=== PATIENT | male | born 1940 | race Caucasian/White ===

== ENCOUNTER 2023-02-07 06:34 | Day surgery (SDC) | payer OTHER ==
[2023-02-05 16:02] LABS: Absolute Lymphocytes (CBC) 3.1 K/uL (0.7-4.9); Lymphocytes % 37.4 % (15.3-44.8); MCV 99.2 fL (80-100); MPV 7.6 fL (7.6-11.3); RBC Red Blood Cell Count 4.53 M/uL (4.33-5.43)
[2023-02-05 16:16] LABS: Potassium 3.8 mmol/L (3.5-5.1)
--- NOTE | 2023-02-05 17:30 | RAD REPORT ---
EXAM DESCRIPTION: [facility]2 Views)02/05/2023 3:34 pm CLINICAL HISTORY: Pre op pending pilonidal cyst removal COMPARISON: Chest Pa And Lat (2 Views) dated 03/30/2021; Chest Pa And Lat (2 Views) dated 04/02/2018; CH EST PA AND LAT 2 VIEW dated 07/22/2014; CHEST SINGLE VIEW dated 01/10/2014 TECHNIQUE: PA and lateral views of the chest. FINDINGS: The lungs are clear.Stable peripheral reticular opacities and interstitial coarsening, par ticularly at the left more than right base, likely related to fibrosis or scarring. Partially visuali zed lower cervical fusion hardware. Tortuous thoracic aorta. No pneumothorax or effusion. The cardiom ediastinal contours otherwise are unremarkable. IMPRESSION: No acute cardiopulmonary process. Stable chronic findings as above.
--- NOTE | 2023-02-06 12:41 | EKG ---
Test Date: 2023-02-05 Test Time: 15:17:02 Hose Wrapper: ZARA MEASUREMENT RESULTS: Intervals: Rate: 86 OK: 192 QRSD: 88 QT: 396 QTc: 473 [place]: P: 64 OK: 192 QRS: -47 T: 78 INTERPRETIVE STATEMENTS: Normal sinus rhythm Left anterior fascicular block Nonspecific ST and T wave abnormality Prolonged QT Abnormal ECG Compared to ECG 01/11/2014 07:30:36 Left anterior fascicular block now present ST (T wave) deviation now present Prolonged QT interval now present Sinus bradycardia no longer present Left-axis deviation no longer present Left ventricular hypertrophy no longer present T-wave abnormality no longer present Possible ischemia no longer present Electronically Signed On 02-06-23 12:39:05 CDT by Thaddeus Hatfield
[2023-02-07] MEDS ORDERED: Ringers Lactate 1,000 ML IV ONE (06:53)
[2023-02-07] MEDS ORDERED: METHYLENE BLUE 0.5% 10 ML AMP ONE (07:31)
[2023-02-07] MEDS ORDERED: CIPROFLOXACIN 400mg IV 400 MG/200 ML BAG IV ONE (07:33)
[2023-02-07] MEDS ORDERED: propofoL 200 MG/20 ML VIAL IV ONE (07:41)
[2023-02-07] MEDS ORDERED: FENTANYL CITR 100 MCG/2 ML ONE (07:42)
[2023-02-07] MEDS ORDERED: ROCURONIUM 50 MG/5 ML VIAL IV ONE (07:43)
[2023-02-07] MEDS ORDERED: ONDANSETRON 4 MG/2 ML VIAL ONE (07:44)
[2023-02-07] MEDS ORDERED: LIDOCAINE 2% MPF 5 ML VIAL ONE (07:44)
[2023-02-07] MEDS ORDERED: NEOSTIGMINE 1 MG/ML -10 ML VIAL ONE (08:28)
[2023-02-07] MEDS ORDERED: GLYCOPYRROLATE 0.2 MG/ML SYR ONE (08:28)
[2023-02-07] MEDS ORDERED: KETOROLAC 30 MG/ML INJ ONE (08:33)
[2023-02-07] MEDS ORDERED: ALBUTEROL 2.5 MG/3 ML NEB SOL ONE (08:42)
[2023-02-07] MEDS ORDERED: SUGAMMADEX SODIUM 200 MG/2 ML VIAL IV ONE (08:46)
[2023-02-07] MEDS ORDERED: EPINEPHRINE INH 0.5 ML VIAL IH ONE (08:46)
--- NOTE | 2023-02-07 08:46 | P.BOP ---
Preoperative diagnosis: infected pilonidal cyst Postoperative diagnosis: same Primary procedure: Wide excision of infected pilonidal cyst 4x4cm Estimated blood loss: <10cc Specimen: cyst Findings: as above Anesthesia: General Complications: None Drain(s): Other (wet to dry NS) Transferred to: Recovery Room Condition: Good
[2023-02-07 09:48] VITALS: O2SAT 93
[2023-02-07 11:15] VITALS: BP 145/76; TEMP 97
--- NOTE | 2023-02-07 12:28 | OP ---
Date of Procedure: 02/07/2023 Surgeon: Krishna Lynne MD Preoperative Diagnosis: Infected pilonidal cyst. Postoperative Diagnosis: Infected pilonidal cyst. Procedure: Wide excision of infected pilonidal cyst 4 x 4 cm. Estimated Blood Loss: Less than 10 cc. Specimen: Cyst. Anesthesia: General plus local. Packing: Wet-to-dry normal saline. Indications: This is the case of an 82-year-old patient who comes to us with an infected pilonidal c yst. The benefits, alternatives, and risks of wide excision were fully explained which include, but not limited to, infection, bleeding, damage to adjacent structures, anesthesia complication, NV, and even . He also understands this may not relieve any symptoms. He might need more than one surg ical intervention. He understood, signed a consent. He understands also he will be packing that are a. There was an ulceration on the center of that skin, we cannot rule out malignancy, so he was advi sed to be aware of his following up on his pathology report that we are going to send out. The area of concern was previously marked by me and the patient. Description Of Procedure: Patient was brought to the operating room, placed in supine position, anes thesia was done without complication. The patient was placed in prone position with proper protectio n. The area of concern was identified. The area was prepped and draped in a sterile fashion. Methy shannon blue was placed through that area with the catheter. Then, after that, we proceeded to delineat e the area and do a wide resection all the way down into near the tailbone. Mass was excised. The a katie was irrigated. The hemostasis was obtained. Due to that ulceration and infection, I believe, he will benefit better from just letting that closed by secondary intention. So, then after injecting local anesthetic and obtaining hemostasis, we packed the area with wet-to-dry dressing. Patient cindie rated the procedure well. Patient was sent to recovery in stable condition. HM/MODL Voice ID: [id number] Report ID: [id number]
--- NOTE | 2023-02-07 12:34 | DS ---
Date of Discharge: 02/07/2023 Diagnosis: Infected pilonidal cyst. Procedure: Wide excision of infected pilonidal cyst, 4 x 4 cm. Disposition: Home. Plan: Wet-to-dry dressing daily. Follow up in my office in 1 week. Call for appointment at [phone]. ISSA/MARISELA Voice ID: [id number] Report ID: [id number]
== END 2023-02-07 11:08 | disposition home or self-care (01) ==
LOC: OR 06:34
PROVIDERS: ATTEND Surgery
PROC: 0JB90ZZ Excision of Buttock Subcutaneous Tissue and Fascia, Open Approach (ICD-10-PCS; principal; 2023-02-07 08:00)
DX: L05.91 Pilonidal cyst without abscess (principal)
CPT/HCPCS: 93005; 85025; 80048; 36415; 88304; 71046; 11770; J2704; J2710; J7613; J2001; J3010; J2405; J0744; J7120

== ENCOUNTER 2023-05-19 11:37 | Emergency (ER) | payer OTHER ==
--- OUTSIDE RECORDS SUMMARY | 2023-05-19 11:43 | XMS REPORT | Continuity of Care Document ---
:[address] [facility] Address [address] [place] [address] [address] [place] [address] Care Team Providers Name Role Phone Pcp, Patient Does Not Have A Primary Care Physician [id number] Sreedhar Sandoval Attending Clinician Unavailable Nurse, Adc Pob Immunization Attending Clinician Unavailable Daren Bravo DO Attending Clinician Payers Payer Name Policy Type Policy Number Effective Date Expiration Date S ource Problems Condition Condition Condition Status Onset Resolution Last Treating Co mments Source Name Details Category Date Date Treatment Clinician Date [id number] Pain of Problem Comm on right hip [facility] joint - [facility] [id number] 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 [facility] [id number] Sciatica, Problem Comm on right side [facility] Allergies, Adverse Reactions, Alerts Allergy Allergy Status Severity Reaction(s) Onset Inactive Treating Comm ents Source Name Type Date Date Clinician codeine codeine Active Unknown Common [facility] 0 Drug Active Unknown Common allergy [facility] Social History Social Habit Start Date Stop Date Quantity Comments Source History of Tobacco Current Smoker Co mmon [facility] Use [facility] Sex Assigned At Com mon [facility] Smoking Status Start Date Stop Date Source Unknown if ever smoked [facility] Current Smoker 2022-08-16 00:00:00 Common Spiri t - [facility] Medications Ordered Filled Start Stop Current Ordering Indication Dosage Frequency Signature Comments Components Source Medication Medication Date Date Medication? Clinician (SIG) Name Name Bupivicaine Bupivicaine 2019- No 2.5mg Common Nutrioso Nutrioso 2-10 Spirit 00:00: - [facility] Kenalog Kenalog 2019- No 40mg Common (Triamcinol (Triamcinol 2-10 S pirit one) one) 00:00: - [facility] Bupivicaine Bupivicaine 2019- No 2.5mg Common Nutrioso Nutrioso 2-10 Spirit 00:00: - [facility] Kenalog Kenalog 2019- No 40mg Common (Triamcinol (Triamcinol 2-10 S pirit one) one) 00:00: - [facility] Bupivicaine Bupivicaine 2019-1 No 2.5mg Common Nutrioso Nutrioso 2-10 Spirit 00:00: - [facility] Kenalog Kenalog 2019- No 40mg Common (Triamcinol (Triamcinol 2-10 S pirit one) one) 00:00: - [facility] Bupivicaine Bupivicaine 2019-1 No 2.5mg Common Nutrioso Nutrioso 2-10 Spirit 00:00: - [facility] Kenalog Kenalog 2019- No 40mg Common (Triamcinol (Triamcinol 2-10 S pirit one) one) 00:00: - [facility] Ferrous Ferrous No Ferrous Gluconate - Gluconate - Gluconate - HYDROcodone HYDROcodone No HYDROcodon -Acetaminop -Acetaminop e-Acetamin hen hen ophen Lutein 6 MG Lutein 6 MG No 1{capsu QD Lutein 6 le_with MG _a_meal } Aspirin Aspirin No Aspirin Acidophilus Acidophilus No Acidophilu Probiotic - Probiotic - s Probiotic - Calcium + D Calcium + D No Calcium + 500-1000-40 500-1000-40 D MG-UNT-MCG MG-UNT-MCG 500-1000-4 0 MG-UNT-MCG Tylenol Tylenol No Tylenol Arthritis Arthritis Arthritis Pain Pain Pain predniSONE predniSONE No predniSONE Jackson Oil Jackson Oil No Jackson Oil - - - Vitamin D Vitamin D No 1{table QD Vitamin D 25 MCG 25 MCG t} 25 MCG (1000 UT) (1000 UT) (1000 UT) Metoprolol Metoprolol No Metoprolol Tartrate Tartrate Tartrate Atorvastati Atorvastati No Atorvastat n Calcium n Calcium in Calcium Antioxidant Antioxidant No Antioxidan - - t - Ferrous Ferrous No Ferrous Gluconate - Gluconate - Gluconate - HYDROcodone HYDROcodone No HYDROcodon -Acetaminop -Acetaminop e-Acetamin hen hen ophen Lutein 6 MG Lutein 6 MG No 1{capsu QD Lutein 6 le_with MG _a_meal } Aspirin Aspirin No Aspirin Acidophilus Acidophilus No Acidophilu Probiotic - Probiotic - s Probiotic - Calcium + D Calcium + D No Calcium + 500-1000-40 500-1000-40 D MG-UNT-MCG MG-UNT-MCG 500-1000-4 0 MG-UNT-MCG Tylenol Tylenol No Tylenol Arthritis Arthritis Arthritis Pain Pain Pain predniSONE predniSONE No predniSONE Jackson Oil Jackson Oil No Jackson Oil - - - Vitamin D Vitamin D No 1{table QD Vitamin D 25 MCG 25 MCG t} 25 MCG (1000 UT) (1000 UT) (1000 UT) Metoprolol Metoprolol No Metoprolol Tartrate Tartrate Tartrate Atorvastati Atorvastati No Atorvastat n Calcium n Calcium in Calcium Antioxidant Antioxidant No Antioxidan - - t - Ferrous Ferrous No Ferrous Gluconate - Gluconate - Gluconate - Atorvastati Atorvastati Yes Gareth not Common n Calcium n Calcium Brar defined Sp kala [facility] PredniSONE PredniSONE Yes Gareth not Common Brar defined [facility] Metoprolol Metoprolol Yes Gareth not Common Tartrate Tartrate Brar defined Spir it [facility] Hydrocodone Hydrocodone Yes Gareth not Common -Acetaminop -Acetaminop Brar defined Spirit hen hen [facility] Aspirin Aspirin Yes Gareth not Common Brar defined [facility] Antioxidant Antioxidant Yes Gareth as Common Brar directed [facility] Calcium + D Calcium + D Yes Gareth as Common Brar directed [facility] Ferrous Ferrous Yes Gareth as Common Gluconate Gluconate Brar directed S pirit [facility] Lutein Lutein Yes Gareth 1 capsule Com mon Brar with a Spirit meal - [facility] Acidophilus Acidophilus Yes Gareth as Common Probiotic Probiotic Brar directed S pirit - [facility] Tylenol Tylenol Yes Gareth not Common Arthritis Arthritis Brar defined Sp kala Pain Pain - [facility] Jackson Oil Jackson Oil Yes Gareth as Common Brar directed Spirit [facility] Vitamin D Vitamin D Yes Gareth 1 tablet Common Brar Spirit [facility] HYDROcodone HYDROcodone No HYDROcodon -Acetaminop -Acetaminop e-Acetamin hen hen ophen Lutein 6 MG Lutein 6 MG No 1{capsu QD Lutein 6 le_with MG _a_meal } Aspirin Aspirin No Aspirin Acidophilus Acidophilus No Acidophilu Probiotic - Probiotic - s Probiotic - Calcium + D Calcium + D No Calcium + 500-1000-40 500-1000-40 D MG-UNT-MCG MG-UNT-MCG 500-1000-4 0 MG-UNT-MCG Tylenol Tylenol No Tylenol Arthritis Arthritis Arthritis Pain Pain Pain predniSONE predniSONE No predniSONE Jackson Oil Jackson Oil No Jackson Oil - - - Vitamin D Vitamin D No 1{table QD Vitamin D 25 MCG 25 MCG t} 25 MCG (1000 UT) (1000 UT) (1000 UT) Metoprolol Metoprolol No Metoprolol Tartrate Tartrate Tartrate Atorvastati Atorvastati No Atorvastat n Calcium n Calcium in Calcium Antioxidant Antioxidant No Antioxidan - - t - Ferrous Ferrous No Ferrous Gluconate - Gluconate - Gluconate - HYDROcodone HYDROcodone No HYDROcodon -Acetaminop -Acetaminop e-Acetamin hen hen ophen Lutein 6 MG Lutein 6 MG No 1{capsu QD Lutein 6 le_with MG _a_meal } Aspirin Aspirin No Aspirin Acidophilus Acidophilus No Acidophilu Probiotic - Probiotic - s Probiotic - Calcium + D Calcium + D No Calcium + 500-1000-40 500-1000-40 D MG-UNT-MCG MG-UNT-MCG 500-1000-4 0 MG-UNT-MCG Tylenol Tylenol No Tylenol Arthritis Arthritis Arthritis Pain Pain Pain predniSONE predniSONE No predniSONE Jackson Oil Jackson Oil No Jackson Oil - - - Vitamin D Vitamin D No 1{table QD Vitamin D 25 MCG 25 MCG t} 25 MCG (1000 UT) (1000 UT) (1000 UT) Metoprolol Metoprolol No Metoprolol Tartrate Tartrate Tartrate Atorvastati Atorvastati No Atorvastat n Calcium n Calcium in Calcium Antioxidant Antioxidant No Antioxidan - - t - Immunizations Ordered Filled Immunization Date Status Comments Sourc e Immunization Name Name SARS-COV-2 COVID-19 2021-09-09 Completed [facility] PFIZER VACCINE 00:00:00 [facility] SARS-COV-2 COVID-19 2021-03-03 Completed Unive rsity of PFIZER VACCINE 00:00:00 [facility] SARS-COV-2 COVID-19 2021-02-09 Completed Unive rsity of PFIZER VACCINE 00:00:00 [facility] Vital Signs Vital Name Observation Time Observation Value Comments Source height 2022-08-15 13:00:00 66 [in_i] [facility] weight 2022-08-15 13:00:00 171.8 [lb_av] [facility] temperature 2022-08-15 13:00:00 96.7 [degF] [facility] bmi 2022-08-15 13:00:00 27.73 kg/m2 [facility] blood pressure 2022-08-15 13:00:00 126 mm[Hg] [facility] - systolic [facility] blood pressure 2022-08-15 13:00:00 84 mm[Hg] [facility] diastolic [facility] Procedures Procedure Date / Time Performed Performing Clinician Reji e SARS-COV-2 COVID-19 2021-09-09 18:19:18 Doctor Unassigned, No [facility] [place] VACCINE,0.3ML,IM Name [facility] (PFIZER) Encounters Start End Encounter Admission Attending Care Care Encounter Source Date/Time Date/Time Type Type Clinicians Facility Department ID 2023-03-29 [id number] Common 16:06:00 [id number] [facility] 2022-08-15 [facility] [id number] Common 13:52:01 [id number] [facility] 2021-12-[address] [facility] [id number] Common 13:27:56 [id number] [facility] 2021-12-21 Outpatient Sreedhar Sandoval [facility] [id number] Common 13:00:54 [id number] [facility] 2021-12-21 Outpatient Sreedhar Sandoval [facility] [id number] Common 12:59:57 [id number] [facility] 2021-12-21 Outpatient [facility] [id number] Common 12:11:28 [id number] [facility] 2021-12-21 Outpatient [facility] [id number] Common 11:17:15 [id number] [facility] 2022-08-15 2022-08-15 OFFICE [facility] [id number] Co mmon 00:00:00 00:00:00 VISIT [facility] 4 [facility] 2022-08-15 2022-08-15 (TEL) [facility] ST[facility] [id number] Co mmon 00:00:00 00:00:00 [facility] 2021-09-09 2021-09-09 Imm/Inj Nurse, Adc Pob Immunization [facility] [id number] [facility] 12:58:40 12:59:32 Visit Daren Bravo [id number] emmett Randolph [id number] Cathi Arboleda [id number] [address] 2021-06-14 2021-06-14 Outpatient [facility] [id number] Common 00:00:00 00:00:00 [facility] 2021-06-14 2021-06-14 Outpatient [facility] [id number] Common 00:00:00 00:00:00 [facility] 2021-05-31 2021-05-31 Outpatient [facility] [id number] Common 00:00:00 00:00:00 [facility] 2021-04-19 2021-04-19 Outpatient [facility] [id number] Common 00:00:00 00:00:00 [facility] 2021-04-04 2021-04-04 Outpatient [facility] [id number] Common 00:00:00 00:00:00 [facility] 2021-04-01 2021-04-01 Outpatient [facility] [id number] Common 00:00:00 00:00:00 [facility] 2020-11-04 2020-11-04 Outpatient [facility] [id number] Common 00:00:00 00:00:00 [facility] 2020-11-04 2020-11-04 Outpatient [facility] [id number] Common 00:00:00 00:00:00 [facility] 2020-04-20 2020-04-20 [id number] Common 14:30:00 14:30:00 [facility] 2020-04-01 2020-04-01 [facility] [id number] Common 10:45:00 10:45:00 [facility] 2019-08-19 2019-08-19 [facility] [id number] Common 12:22:00 12:22:00 [facility] 2019-08-13 2019-08-13 [facility] [id number] Common 13:30:00 13:30:00 [facility] Results This patient has no known results.
[2023-05-19] MEDS ORDERED: LIDOCAINE 1% W/EPI 1:100,000 50 ML MDV ONE (16:48)
--- NOTE | 2023-05-19 17:20 | EDPHYS ---
Physician Documentation [facility] Name: Vel Hernández Age: 82 yrs Sex: Male : 1940 Arrival Date: 05/19/2023 Time: 11:37 Bed 9 Private MD: Sreedhar Sandoval T ED Physician Edgar Jv HPI: 05/19 17:13 This 82 yrs old Male presents to ER via Ambulatory with complaints of Skin felisha Sore(s) - buttock. 17:13 The patient presents with an abscess of the buttocks, The patient presents with felisha cellulitis of the buttocks. Description: The affected area is small, confluent, draining, erythematous. Onset: The symptoms/episode began/occurred 3 day(s) ago. Possible cause(s): unknown. Associated signs and symptoms: The patient has no apparent associated signs or symptoms. Severity of symptoms: At their worst the symptoms were mild, moderate, in the emergency department the symptoms are unchanged. The patient has experienced similar episodes in the past, several times. Historical: - Allergies: 12:21 PENICILLINS; iw 12:21 SHELLFISH; iw - Immunization history:: Adult Immunizations up to date. - Social history:: Smoking status: Patient denies any tobacco usage or history of. Patient/guardian denies using alcohol. - Family history:: not pertinent. ROS: 17:13 Constitutional: Negative for fever, chills, and weight loss, Eyes: Negative for injury, felisha pain, redness, and discharge, ENT: Negative for injury, pain, and discharge, Neck: Negative for injury, pain, and swelling, Cardiovascular: Negative for chest pain, palpitations, and edema, Respiratory: Negative for shortness of breath, cough, wheezing, and pleuritic chest pain, Abdomen/GI: Negative for abdominal pain, nausea, vomiting, diarrhea, and constipation, Back: Negative for injury and pain, : Negative for injury, bleeding, discharge, and swelling, MS/Extremity: Negative for injury and deformity, Neuro: Negative for headache, weakness, numbness, tingling, and seizure, Psych: Negative for depression, anxiety, suicide ideation, homicidal ideation, and hallucinations, Allergy/Immunology: Negative for hives, rash, and allergies, Endocrine: Negative for neck swelling, polydipsia, polyuria, polyphagia, and marked weight changes, Hematologic/Lymphatic: Negative for swollen nodes, abnormal bleeding, and unusual bruising. 17:13 Skin: Positive for abscess, cellulitis, of the left gluteus nina. Exam: 17:13 Constitutional: This is a well developed, well nourished patient who is awake, alert, felisha and in no acute distress. Head/Face: Normocephalic, atraumatic. Eyes: Pupils equal round and reactive to light, extra-ocular motions intact. Lids and lashes normal. Conjunctiva and sclera are non-icteric and not injected. Cornea within normal limits. Periorbital areas with no swelling, redness, or edema. ENT: Nares patent. No nasal discharge, no septal abnormalities noted. Tympanic membranes are normal and external auditory canals are clear. Oropharynx with no redness, swelling, or masses, exudates, or evidence of obstruction, uvula midline. Mucous membranes moist. Neck: Trachea midline, no thyromegaly or masses palpated, and no cervical lymphadenopathy. Supple, full range of motion without nuchal rigidity, or vertebral point tenderness. No Meningismus. Chest/axilla: Normal chest wall appearance and motion. Nontender with no deformity. No lesions are appreciated. Cardiovascular: Regular rate and rhythm with a normal S1 and S2. No gallops, murmurs, or rubs. Normal PMI, no JVD. No pulse deficits. Respiratory: Lungs have equal breath sounds bilaterally, clear to auscultation and percussion. No rales, rhonchi or wheezes noted. No increased work of breathing, no retractions or nasal flaring. Abdomen/GI: Soft, non-tender, with normal bowel sounds. No distension or tympany. No guarding or rebound. No evidence of tenderness throughout. Back: No spinal tenderness. No costovertebral tenderness. Full range of motion. Male : Normal genitalia with no discharge or lesions. MS/ Extremity: Pulses equal, no cyanosis. Neurovascular intact. Full, normal range of motion. Neuro: Awake and alert, GCS 15, oriented to person, place, time, and situation. Cranial nerves II-XII grossly intact. Motor strength 5/5 in all extremities. Sensory grossly intact. Cerebellar exam normal. Normal gait. Psych: Awake, alert, with orientation to person, place and time. Behavior, mood, and affect are within normal limits. 17:13 Skin: abscess, that is small, of the buttocks, with fluctuance, with induration, with surrounding cellulitis, cellulitis, that is mild, induration, that is moderate is noted, injury, is not appreciated. Vital Signs: 12:20 BP 108 / 72; Pulse 96; Resp 16; Temp 99; Pulse Ox 96% on R/A; iw 14:15 BP 153 / 80; Pulse 76; Resp 16; Pulse Ox 95% on R/A; db Procedures: 17:13 I \T\ D: Incision and drainage was performed for an abscess of the left Prepped with [facility] Betadine, Anesthetized with 8 ml's 1% Lidocaine w/ Epi. Incised with #11 blade. Drained small amount Packed with iodoform gauze, Dressing: non-Adherent dressing, the patient tolerated the procedure well. MDM: 12:21 Patient medically screened. [facility] 17:16 Data reviewed: vital signs, nurses notes. I considered the following discharge [facility] prescriptions or medication management in the emergency department Medications were administered in the Emergency Department. See MAR. Test considered but Not performed: Labs: no labs. Care significantly affected by the following chronic conditions: [place]. Counseling: I had a detailed discussion with the patient and/or guardian regarding: the historical points, exam findings, and any diagnostic results supporting the discharge/admit diagnosis, the need for outpatient follow up, for definitive care, a family practitioner, a general surgeon. 05/19 17:23 Order name: Wound Culture [facility] 05/19 16:49 Order name: I\T\D Setup; Complete Time: 17:23 mm9 05/19 17:13 Order name: Dressing - Wound; Complete Time: 17:23 [facility] 05/19 17:13 Order name: Gloves, Sterile; Complete Time: 17:23 felisha 05/19 17:13 Order name: Prolene, Sutures; Complete Time: 17:23 [facility] 05/19 17:13 Order name: Setup Suture Tray; Complete Time: 17:23 [facility] Administered Medications: 17:23 Drug: Lidocaine-Epinephrine Infiltration -1%: (1:100,000) 8 ml Volume: 20 ml; Route: iw Infiltration; 17:23 Drug: Trimethoprim-Sulfamethoxazole PO (160 mg-800 mg (DS) 1 tablet Route: PO; iw 17:24 Drug: Ciprofloxacin PO 500 mg Route: PO; iw 17:24 Drug: Mupirocin Topical Ointment 2 % 1 application Route: Topical; Site: affected area; iw Disposition Summary: 05/19/23 17:19 Discharge Ordered Location: Home felisha Problem: new felisha Symptoms: have improved felisha Condition: Stable felisha Diagnosis - Cutaneous abscess of buttock felisha Followup: felisha - With: Sreedhar Sandoval MD - When: 2 - 3 days - Reason: Recheck today's complaints, Continuance of care, Re-evaluation by your physician Followup: felisha - With: Dhiraj Martinez MD - When: 2 - 3 days - Reason: Recheck today's complaints, Re-evaluation by your physician Discharge Instructions: - Discharge Summary Sheet felisha - Skin Abscess felisha - Incision and Drainage felisha - Skin Abscess, Pbrh-do-[id number] felisha - Incision and Drainage, Care After felisha Forms: - Medication Reconciliation Form felisha - Thank You Letter felisha - Antibiotic Education felisha - Prescription Opioid Use [facility] Prescriptions: - Centany 2 % Topical ointment - apply 1 application by TOPICAL route 4 times per day; 15 gram; Refills: 0, [facility] Product Selection Permitted - Cipro 500 mg Oral Tablet - take 1 tablet by ORAL route every 12 hours for 7 days; 14 tablet; Refills: 0, [facility] Product Selection Permitted - Bactrim DS 800-160 mg Oral Tablet - take 1 tablet by ORAL route every 12 hours for 7 days; 14 tablet; Refills: 0, [facility] Product Selection Permitted Signatures: Dispatcher [employer] Jv Olivera MD MD cha Williams, Irene, RN RN Germania Maharaj RN RN ld1 Betty Lynne mm9
--- NOTE | 2023-05-19 17:20 | ER ---
Nurse's Notes [facility] Name: Vel Lr Age: 82 yrs Sex: Male : 1940 Arrival Date: 05/19/2023 Time: 11:37 Bed 9 Private MD: Sreedhar Sandoval T Diagnosis: Cutaneous abscess of buttock Presentation: 05/19 12:20 Chief complaint: Patient states: i have a spot below left buttock X 3 -4 days, possible iw abscess, had a flare up of diarrhea 10 days ago. Coronavirus screen: At this time, the client does not indicate any symptoms associated with coronavirus-19. Ebola Screen: Patient negative for fever greater than or equal to 101.5 degrees Fahrenheit, and additional compatible Ebola Virus Disease symptoms Patient denies exposure to infectious person. Patient denies travel to an Ebola-affected area in the 21 days before illness onset. No symptoms or risks identified at this time. Initial Sepsis Screen: Does the patient meet any 2 criteria? No. Patient's initial sepsis screen is negative. Does the patient have a suspected source of infection? No. Patient's initial sepsis screen is negative. Risk Assessment: Do you want to hurt yourself or someone else? Patient reports no desire to harm self or others. Onset of symptoms was May 16, 2023. 12:20 Method Of Arrival: Ambulatory iw 12:20 Acuity: JOSEPHINE 3 iw Triage Assessment: 14:41 General: Appears in no apparent distress. comfortable, Behavior is calm, cooperative, ld1 appropriate for age. Pain: Denies pain. Historical: - Allergies: 12:21 PENICILLINS; iw 12:21 SHELLFISH; iw - Immunization history:: Adult Immunizations up to date. - Social history:: Smoking status: Patient denies any tobacco usage or history of. Patient/guardian denies using alcohol. - Family history:: not pertinent. Screenin:41 [facility] ED Fall Risk Assessment (Adult) History of falling in the last 3 months, ld1 including since admission No falls in past 3 months (0 pts). Abuse screen: Denies threats or abuse. Denies injuries from another. Nutritional screening: No deficits noted. Tuberculosis screening: No symptoms or risk factors identified. Assessment: 13:45 Reassessment: Patient appears in no apparent distress at this time. Patient and/or db family updated on plan of care and expected duration. Pain level reassessed. Patient is alert, oriented x 3, equal unlabored respirations, skin warm/dry/pink. PATIENT HAS SMALL RAISED BUMP ON LEFT BUTTOCK. APPEARS TO HAVE IN GROWN HAIR. General: Appears in no apparent distress. comfortable, Behavior is calm, cooperative. Neuro: Level of Consciousness is awake, alert, obeys commands, Oriented to person, place, time, situation, Speech is normal. Respiratory: Airway is patent Respiratory effort is even, unlabored, Respiratory pattern is regular, symmetrical. 14:40 Reassessment: Pt left room at this time. "I want to go home now." Notified ERP. ld1 14:48 Reassessment: DR. LR NOTIFIED PATIENT WALKED OUT. db Vital Signs: 12:20 BP 108 / 72; Pulse 96; Resp 16; Temp 99; Pulse Ox 96% on R/A; iw 14:15 BP 153 / 80; Pulse 76; Resp 16; Pulse Ox 95% on R/A; db ED Course: 11:43 Patient arrived in ED. am2 11:43 Sreedhar Sandoval MD is Private Physician. am2 12:21 Triage completed. iw 12:21 Jv Lr MD is Attending Physician. felisha 12:21 Arm band placed on. iw 13:32 Noemi Woods, RN is Primary Nurse. db 14:41 Patient has correct armband on for positive identification. Placed in gown. Bed in low ld1 position. Side rails up X2. Pulse ox on. NIBP on. Door closed. Noise minimized. Warm blanket given. 14:41 No provider procedures requiring assistance completed. Patient did not have IV access ld1 during this emergency room visit. 17:17 Sreedhar Sandoval MD is Referral Physician. felisha 17:18 Dhiraj Martinez MD is Referral Physician. felisha 17:23 Primary Nurse role handed off by Noemi Woods, MARY iw Administered Medications: 17:23 Drug: Lidocaine-Epinephrine Infiltration -1%: (1:100,000) 8 ml Volume: 20 ml; Route: iw Infiltration; 17:23 Drug: Trimethoprim-Sulfamethoxazole PO (160 mg-800 mg (DS) 1 tablet Route: PO; iw 17:24 Drug: Ciprofloxacin PO 500 mg Route: PO; iw 17:24 Drug: Mupirocin Topical Ointment 2 % 1 application Route: Topical; Site: affected area; iw Medication: 14:48 VIS not applicable for this client. db Outcome: 14:41 Condition: stable ld1 17:19 Discharge ordered by . felisha 17:22 Discharged to home ambulatory. iw 17:22 Discharge instructions given to patient. 17:23 Patient left the ED. iw 17:24 Patient left the ED. iw Signatures: Jv Lr MD MD cha Williams, Irene, RN RN iw Gris Lynch Lauren, RN RN ld1 Noemi Woods RN RN db
[2023-05-19 17:27] VITALS: TEMP 99
[2023-05-19 17:32] VITALS: BP 153/80; O2SAT 95
== END 2023-05-19 17:24 | disposition home or self-care (01) ==
LOC: ER 11:37
PROC: 0H98XZZ Drainage of Buttock Skin, External Approach (ICD-10-PCS; principal; 2023-05-19)
DX: L02.31 Cutaneous abscess of buttock (principal); L03.317 Cellulitis of buttock; Z88.0 Allergy status to penicillin; Z91.013 Allergy to seafood
CPT/HCPCS: 87070; 87205; 99283

== ENCOUNTER 2023-09-12 11:27 | Day surgery (SDC) | payer OTHER ==
[2023-09-12] MEDS ORDERED: BUPIVACAINE 0.25% PF 10 ML VIAL ONE (11:58)
[2023-09-12] MEDS ORDERED: TRIAMCINOLONE ACETON 40 MG/ML VIAL ONE (11:59)
[2023-09-12] MEDS ORDERED: LIDOCAINE 1% 20 ML MDV ONE (11:59)
--- NOTE | 2023-09-12 12:54 | RAD REPORT ---
EXAM DESCRIPTION: RAD - Fluoroscopy <1 Hour - 09/12/2023 12:44 pm CLINICAL HISTORY: RIGHT HIP INJECTION COMPARISON: No comparisons FINDINGS: Fluoroscopy time: 0.1 minutes
[2023-09-12 13:19] VITALS: BP 114/70; TEMP 98.9; O2SAT 98
== END 2023-09-12 13:00 | disposition home or self-care (01) ==
LOC: OR 11:27
PROVIDERS: ATTEND Pain Medicine Interventional Pain Medicine
PROC: 0S993ZZ Drainage of Right Hip Joint, Percutaneous Approach (ICD-10-PCS; principal; 2023-09-12 12:15)
DX: M16.11 Unilateral primary osteoarthritis, right hip (principal); M25.551 Pain in right hip
CPT/HCPCS: 76000; J2001; J3301